=== PATIENT | male | born 1955 | race Caucasian/White ===

== ENCOUNTER → 2018-10-21 | Outpatient (CLI) | payer OTHER ==
[~2018-10-21] MED LIST: ALBUTEROL0.63 MG/3 INH; AMBIEN10 MG PO; AVAPRO150 MG PO; BACTRIM DS TAB1 EACH PO; JANUVIA100 MG PO; METFORMIN HCL500 MG PO; ONGLYZA2.5 MG PO; PLAVIX75 MG PO; PRAVASTATIN SOD40 MG PO; TESSALON PERLE100 MG PO
--- NOTE | 2018-10-21 14:17 | Diagnostic Imaging Report ---
EXAMINATION: PA and lateral views of the chest. COMPARISON: None CLINICAL HISTORY: Cough DISCUSSION: The lungs are well-inflated. No focal airspace consolidation, pleural effusion, or pneumothorax. Cardiomediastinal contour and pulmonary vasculature are within normal limits. No acute osseous abnormality. IMPRESSION: No acute cardiopulmonary abnormalities. Signed by: Dr. Zhang Mills M.D. on 10/21/2018 2:14 PM
== END ==
LOC: RAD 13:19
PROVIDERS: ATTEND Internal Medicine
DX: R05 Cough (principal); J40 Bronchitis, not specified as acute or chronic
CPT/HCPCS: 71046